=== PATIENT | female | born 2000 | race Caucasian/White ===

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

== ENCOUNTER 2021-07-16 18:56 | Emergency (ER) | payer MEDICAID, OTHER ==
--- NOTE | 2021-07-16 19:34 | EDM.PDOC ---
ED HPI GENERAL MEDICAL PROBLEM - General Chief Complaint: Fever Stated Complaint: fever Time Seen by Provider: 07/16/21 19:21 Source of Information: Reports: Patient - History of Present Illness INITIAL COMMENTS - FREE TEXT/NARRATIVE: 21-year-old lady came to the emergency department due to a 2-day history of fever, chills, cough, sore throat, arthralgias, myalgias, congestion. She states her symptoms started abruptly yesterday and got worse this morning. She is taken ibuprofen with only mild and temporary relief. The last time she took ibuprofen was 2:30 this afternoon. She does not know of any sick contacts. She has been vaccinated for Covid but does not have her influenza vaccine yet. - Related Data Allergies Allergy/AdvReac Type Severity Reaction Status Date / Time amoxicillin Allergy Rash Verified 07/16/21 19:15 Home Meds: Home Meds Sertraline [Zoloft] 100 mg PO BEDTIME 10/11/20 [History] QUEtiapine [SEROquel] 50 mg PO BEDTIME 07/16/21 [History] Sulfamethoxazole/Trimethoprim [Bactrim Ds Tablet] 1 each PO BID #6 tablet 07/16/21 [Rx] Venlafaxine HCl [Venlafaxine HCl ER] 150 mg PO DAILY 07/16/21 [History] Past Medical History Respiratory History: Reports: Asthma Psychiatric History: Reports: Anxiety, Depression - Past Surgical History HEENT Surgical History: Reports: Tonsillectomy Social & Family History - Caffeine Use Caffeine Use: Reports: Soda - Living Situation & Occupation Occupation: Employed (Works at [employer]) ED ROS ENT - Review of Systems Review Of Systems: See Below Constitutional: Reports: Fever, Chills, Fatigue HEENT: Reports: Rhinitis, Throat Pain, Other (Headache) Respiratory: Reports: Cough Cardiovascular: Reports: No Symptoms Endocrine: Reports: No Symptoms GI/Abdominal: Reports: Nausea : Reports: Flank Pain Musculoskeletal: Reports: Back Pain, Muscle Pain Skin: Reports: No Symptoms Neurological: Reports: No Symptoms Psychiatric: Reports: No Symptoms Hematologic/Lymphatic: Reports: No Symptoms Immunologic: Reports: No Symptoms ED EXAM, ENT - Physical Exam Exam: See Below Exam Limited By: No Limitations General Appearance: Alert, Anxious Eye Exam: Left Eye: EOMI Mouth/Throat: Throat Pain, Other (Erythema the posterior oropharynx). No: Dry Mucous Membrane Head: Atraumatic, Normocephalic Neck: Tender Lateral. No: Lymphadenopathy (R), Lymphadenopathy (L) Respiratory/Chest: No Respiratory Distress, Lungs Clear Cardiovascular: Normal Peripheral Pulses, Regular Rate, Rhythm GI/Abdominal: Normal Bowel Sounds, Soft, Non-Tender Back: CVA Tenderness (L) Extremities: Normal Inspection Neurological: Alert, Oriented, CN II-XII Intact, Normal Cognition Psychiatric: Anxious Skin: Warm, Dry Lymphatic: No Adenopathy Course - Vital Signs Text/Narrative:: Review of urinalysis shows likely urinary tract infection. Patient was given 1 double strength Bactrim. After approximately 30 minutes she has not had any adverse effects. Patient will be discharged to home. We will call her if her Covid test is positive. Her influenza test is negative. Last Recorded V/S: Last Vital Signs Temp 37.7 C 07/16/21 19:00 Pulse 106 H 07/16/21 19:00 Resp 18 07/16/21 19:00 BP 137/71 07/16/21 19:00 Pulse Ox 97 07/16/21 19:00 - Orders/Labs/Meds Orders: Active Orders 24 hr Category Date Time Status CORONAVIRUS COVID-19 CATHI [MOLEC] Urgent Lab 07/16/21 20:55 Ordered CULTURE URINE [RM] Stat Lab 07/16/21 20:06 Ordered Isolation [COMM] Routine Oth 07/16/21 19:28 Ordered Labs: Laboratory Tests 07/16/21 Range/Units 19:45 Urine Color Yellow (YELLOW) Urine Appearance Clear (CLEAR) Urine pH 8.0 H (5.0-6.5) Ur Specific [place] 1.005 L (1.010-1.025) Urine Protein Negative (NEGATIVE) mg/dL Urine Glucose (UA) Normal (NORMAL) mg/dL Urine Ketones Negative (NEGATIVE) mg/dL Urine Occult Blood Large H (NEGATIVE) Urine Nitrite Negative (NEGATIVE) Urine Bilirubin Negative (NEGATIVE) Urine Urobilinogen Normal (NEGATIVE) mg/dL Ur Leukocyte Esterase Moderate H (NEGATIVE) Urine RBC 5-10 H (0-5) Urine WBC 5-10 H (0-5) Ur Squamous Epith Cells Occasional (NS,R,O) Urine Bacteria Few H (NS) Meds: Medications Discontinued Medications Generic Name Dose Route Start Last Admin Trade Name Freq PRN Reason Stop Dose Admin Acetaminophen 650 mg 07/16/21 19:28 07/16/21 19:37 Acetaminophen 325 Mg Tab PO 07/16/21 19:29 650 mg NOW ONE Administration Trimethoprim/Sulfamethoxazole 1 tab 07/16/21 20:13 07/16/21 20:25 Sulfamethoxazole/Trimethoprim 800-160 Mg Tab PO 07/16/21 20:14 1 tab ONETIME ONE Administration Departure - Departure Time of Disposition: 20:59 Disposition: Home, Self-Care 01 Condition: Fair Clinical Impression: Urinary tract infection - Discharge Information *PRESCRIPTION DRUG MONITORING PROGRAM REVIEWED*: Not Applicable *COPY OF PRESCRIPTION DRUG MONITORING REPORT IN PATIENT AMAYA: Not Applicable Prescriptions: Sulfamethoxazole/Trimethoprim [Bactrim Ds Tablet] 1 each PO BID #6 tablet Instructions: Urinary Tract Infection, Adult Referrals: Nat Irvin MD [Primary Care Provider] - Forms: ED Department Discharge Additional Instructions: Patient instructed to drink plenty of fluids, take Bactrim double strength, twice daily, follow-up with primary care physician. Antibiotic treatment may n eed to be adjusted based on culture results. Sepsis Event Note (ED) - Evaluation Sepsis Screening Result: No Definite Risk - Focused Exam Vital Signs: Vital Signs Temp Pulse Resp BP Pulse Ox 07/16/21 19:00 37.7 C 106 H 18 137/71 97 - My Orders Last 24 Hours: My Active Orders 07/16/21 19:28 Isolation [COMM] Routine 07/16/21 20:06 CULTURE URINE [RM] Stat 07/16/21 20:55 CORONAVIRUS COVID-19 CATHI [MOLEC] Urgent - Assessment/Plan Last 24 Hours: My Active Orders 07/16/21 19:28 Isolation [COMM] Routine 07/16/21 20:06 CULTURE URINE [RM] Stat 07/16/21 20:55 CORONAVIRUS COVID-19 CATHI [MOLEC] Urgent
[2021-07-16] MEDS: Acetaminophen 325 MG Tab PO ONE (19:37)
[2021-07-16] MEDS: Sulfamethoxazole/Trimethoprim 800-160 MG Tab PO ONE (20:25)
== END 2021-07-16 21:05 | disposition home or self-care (01) ==
LOC: FB.ED 18:56
DX: N39.0 Urinary tract infection, site not specified (principal); Z88.0 Allergy status to penicillin; Z20.822 Contact with and (suspected) exposure to COVID-19
CPT/HCPCS: 81001; 87086; 87635; 87804; 99283; A9270; U0002

== ENCOUNTER 2021-08-15 00:18 | Emergency (ER) | payer MEDICAID, OTHER ==
--- NOTE | 2021-08-15 00:32 | EDM.PDOC ---
ED HPI GENERAL MEDICAL PROBLEM - General Stated Complaint: SPOTS ON BACK Time Seen by Provider: 08/15/21 00:28 Source of Information: Reports: Patient History Limitations: Reports: No Limitations - History of Present Illness INITIAL COMMENTS - FREE TEXT/NARRATIVE: 21-year-old female who presents to the emergency department via private vehicle from her home after she noted a rash on her right lower back. She has had some itching in that area but did not notice anything until tonight. This was noted by her at approximately 11:30 PM and she came directly to the emergency department for evaluation. She has had no fevers or chills. There has been no nausea or vomiting. No sore throat. No cough. No shortness of breath. She has been eating and drinking normally. She has had no new medications. No known new exposures. She has no pain. She would rate her pain as a 0/10. There are no other associated signs or symptoms. There are no other modifying factors. Onset: Today (11:30 p.m. tonight.) Duration: Constant Location: Reports: Back Quality: Reports: Other (No pain) Improves with: Reports: None Worsens with: Reports: None Context: Reports: Other (As above.) Associated Symptoms: Reports: No Other Symptoms (Except as above.) Treatments [employer]: Reports: Other (see below) (Nothing.) - Related Data Allergies Allergy/AdvReac Type Severity Reaction Status Date / Time amoxicillin Allergy Rash Verified 07/16/21 19:15 Home Meds: Home Meds QUEtiapine [SEROquel] 50 mg PO BEDTIME 07/16/21 [History] Venlafaxine HCl [Venlafaxine HCl ER] 150 mg PO DAILY 07/16/21 [History] Past Medical History Respiratory History: Reports: Asthma Psychiatric History: Reports: Anxiety, Depression - Past Surgical History HEENT Surgical History: Reports: Tonsillectomy Social & Family History - Tobacco Use Tobacco Use Status *Q: Never Tobacco User (Nonsmoker) - Caffeine Use Caffeine Use: Reports: Soda - Living Situation & Occupation Occupation: Employed (Works at [employer]) ED ROS GENERAL - Review of Systems Review Of Systems: See Below Constitutional: Denies: Fever, Chills HEENT: Denies: Throat Pain, Throat Swelling Respiratory: Denies: Shortness of Breath, Cough Cardiovascular: Denies: Chest Pain, Palpitations Endocrine: Denies: Fatigue GI/Abdominal: Denies: Nausea, Vomiting : Reports: Other (Denies any possibility of .) Skin: Reports: Pruritis, Rash. Denies: Diaphoresis Neurological: Denies: Dizziness, Headache Hematologic/Lymphatic: Denies: Easy Bleeding, Easy Bruising ED EXAM, SKIN/RASH Exam: See Below Exam Limited By: No Limitations General Appearance: Alert, WD/WN, No Apparent Distress Eye Exam: Bilateral Eye: Normal Inspection (Sclera are anicteric) Ears: Normal External Exam, Hearing Grossly Normal Nose: Normal Inspection, Normal Mucosa, No Blood Throat/Mouth: Normal Inspection, Normal Lips, Normal Teeth, Normal Gums, Normal Oropharynx, Normal Voice, No Airway Compromise Head: Atraumatic, Normocephalic Neck: Normal Inspection, Supple, Non-Tender, Full Range of Motion Respiratory/Chest: No Respiratory Distress, Lungs Clear, Normal Breath Sounds, No Accessory Muscle Use, Chest Non-Tender Cardiovascular: Normal Peripheral Pulses, Regular Rate, Rhythm, No Murmur Peripheral Pulses: 2+: Radial (L), Radial (R) GI/Abdominal: Normal Bowel Sounds, Soft, Non-Tender, No Mass Back Exam: No: Paraspinal Tenderness, Vertebral Tenderness Extremities: Normal Inspection, Normal Range of Motion, Non-Tender, No Pedal Edema, Normal Capillary Refill Neurological: Alert, Oriented, CN II-XII Intact, Normal Cognition, No Motor/Sensory Deficits Psychiatric: Normal Affect, Normal Mood Skin: Warm, Dry, Intact, Rash Location, Skin: Back (Right lower back) Characteristics: Maculopapular, Urticarial Lymphatic: No Adenopathy Course - Orders/Labs/Meds Meds: Medications Discontinued Medications Generic Name Dose Route Start Last Admin Trade Name Freq PRN Reason Stop Dose Admin Diphenhydramine HCl 50 mg 08/15/21 00:44 08/15/21 00:48 Diphenhydramine 50 Mg Cap PO 08/15/21 00:45 50 mg ONETIME ONE Administration - Re-Assessments/Exams Free Text/Narrative Re-Assessment/Exam: 08/15/21 00:35: There is a small area on her right lower back that does appear to have some hives. He has no areas anywhere else on her body that I can see. She is having no difficulty breathing and she is having only itching in the area. There is no sore throat or cause for this rash. No new medications and no new exposures that she is aware of. I will give the patient Benadryl 50 mg orally and she should take Benadryl 50 mg orally every 6 hours as needed for rash/itching. This does not appear to be anything of a serious nature. I discussed all this with the patient and tried to reassure her. Precautions and reasons to return to the emergency department were discussed with the patient will she was in the emergency department and were detailed in the patient's discharge instructions. Departure - Departure Time of Disposition: 00:43 Disposition: Home, Self-Care 01 Condition: Good (stable) Clinical Impression: Hives - Discharge Information Instructions: Hives, [id number], Rash, Adult, [id number] Referrals: Nat Irvin MD [Primary Care Provider] - Additional Instructions: The rash on your back does appear to be an allergic rash called hives. It could also be a rash related to a viral illness but you are really having no other symptoms that would suggest a viral illness. You can take Benadryl 50 mg by mouth every 6 hours as needed for itching. You can get this medication [id number] at any drugstore or at a local discount store. You were given a dose of Benadryl in the emergency department tonight. This does not appear to be anything of a serious nature at this point. Back to the emergency department for trouble breathing, high fever, severe weakness or any other concerning signs or symptoms.
[2021-08-15] MEDS ORDERED: diphenhydrAMINE 50 MG Cap PO ONE (00:44)
== END 2021-08-15 00:52 | disposition home or self-care (01) ==
LOC: FB.ED 00:18
DX: L50.9 Urticaria, unspecified (principal); Z88.0 Allergy status to penicillin
CPT/HCPCS: 99282; A9270

== ENCOUNTER 2021-09-24 13:18 | Emergency (ER) | payer MEDICAID ==
[2021-09-24 14:28] LABS: CORONAVIRUS COVID-19 NAA POSITIVE (NEGATIVE)
== END 2021-09-24 14:54 | disposition home or self-care (01) ==
LOC: FB.ED 13:18
DX: U07.1 COVID-19 (principal); J45.909 Unspecified asthma, uncomplicated; Z88.0 Allergy status to penicillin
CPT/HCPCS: 0241U; 99283

== ENCOUNTER 2023-01-01 11:11 | Emergency (ER) | payer MEDICAID ==
[2023-01-01] MEDS ORDERED: Acetaminophen/HYDROcodone 325-5 MG Tab PO ONE (11:12)
[2023-01-01] MEDS ORDERED: Distilled Water Ophth Irrig Soln 120 ML Bottle EYERT ONE (11:52)
[2023-01-01] MEDS ORDERED: Erythromycin Base 0.5% Ophth Oint 3.5 GM Tube EYEBOTH ONE ×2 (12:38→12:59)
[2023-01-01] MEDS ORDERED: Diphtheria,Pertussis(Acell),Tetanus Vaccine 0.5 ML Syringe IM ONE (12:38)
[2023-01-01] MEDS ORDERED: Erythromycin Base 0.5% Ophth Oint 1 GM Tube ONE (13:02)
== END 2023-01-01 13:15 | disposition home or self-care (01) ==
LOC: FB.ED 11:11
DX: S05.01XA Injury of conjunctiva and corneal abrasion without foreign body, right eye, initial encounter (principal); H10.33 Unspecified acute conjunctivitis, bilateral; J06.9 Acute upper respiratory infection, unspecified; J45.909 Unspecified asthma, uncomplicated; Z88.0 Allergy status to penicillin; Z88.8 Allergy status to other drugs, medicaments and biological substances; Z20.822 Contact with and (suspected) exposure to COVID-19; Z23 Encounter for immunization
CPT/HCPCS: 90471; 90715; 99283; A9270-GY; U0002

== ENCOUNTER 2023-01-19 21:20 | Emergency (ER) | payer MEDICAID ==
[2023-01-19] MEDS ORDERED: Lidocaine 2% Viscous Solution 15 ML UD TOP ONE ×2 (21:31→21:32)
[2023-01-19] MEDS ORDERED: Lidocaine 2% Viscous Solution 15 ML UD TOP STA (21:32)
[2023-01-19] MEDS ORDERED: Clindamycin HCl 150 MG Cap PO STA (22:20)
== END 2023-01-19 22:43 | disposition home or self-care (01) ==
LOC: FB.ED 21:20
DX: K05.6 Periodontal disease, unspecified (principal); J45.909 Unspecified asthma, uncomplicated; Z88.0 Allergy status to penicillin; Z88.8 Allergy status to other drugs, medicaments and biological substances
CPT/HCPCS: 99283; A9270

== ENCOUNTER 2024-02-23 20:03 | Emergency (ER) | payer MEDICAID ==
[2024-02-23 21:21] LABS: BASOPHILS ABSOLUTE AUTO 0.1 x10-3/uL (0.0-0.1); BASOPHILS PERCENT AUTO 0.5 % (0.2-1.5); EOSINOPHILS ABSOLUTE AUTO 0.3 x10-3/uL (0.0-0.8); EOSINOPHILS PERCENT AUTO 2.4 % (0.6-8.1); HEMATOCRIT 43.5 % (34.2-48.2); HEMOGLOBIN 14.4 g/dL (11.4-15.5); LYMPHOCYTES ABSOLUTE AUTO 1.7 x10-3/uL (1.0-4.4); LYMPHOCYTES PERCENT AUTO 15.8 % (18.4-52.1); MEAN CORPUSCULAR HEMOGLOBIN 28.1 pg (23.9-33.9); MEAN CORPUSCULAR HGB CONC 33.1 g/dL (31.9-34.8); MEAN PLATELET VOLUME 8.1 fL (7.1-12.4); MONOCYTES ABSOLUTE AUTO 0.6 x10-3/uL (0.3-1.0); MONOCYTES PERCENT AUTO 5.8 % (4.4-15.7); NEUTROPHILS ABSOLUTE AUTO 8.1 x10-3/uL (1.5-6.3); NEUTROPHILS PERCENT AUTO 75.5 % (30.8-76.2); PLATELET COUNT,PLT 370 x10(3)uL (151-488); RED BLOOD CELL COUNT 5.12 x10(6)uL (3.60-5.20); RED CELL DISTRIBUTION WIDTH 13.2 % (12.3-16.5); WHITE BLOOD CELL COUNT,WBC 10.8 x10-3/uL (3.0-10.3)
[2024-02-23 21:23] LABS: BLOOD UREA NITROGEN,BUN 12 mg/dL (7-18); BUN/CREATININE RATIO 10.9 (9-20); CALCIUM 9.1 mg/dL (8.6-10.2); CARBON DIOXIDE,CO2 29 mmol/L (21-32); CHLORIDE,CL 103 mmol/L (100-110); CREATININE 1.1 mg/dL (0.55-1.02); ESTIMATED GFR 73 mL/min (>60); GLUCOSE RANDOM 128 mg/dL (80-116); POTASSIUM,K 3.5 mmol/L (3.5-5.3); SODIUM,NA 141 mmol/L (135-145)
[2024-02-23] MEDS: Iopamidol 755 Mg/ML 100 ML Bottle IV SCH (21:24)
[2024-02-23 21:29] LABS: A/G RATIO 1.1; ALANINE AMINOTRANSFERASE,ALT 16 U/L (12-36); ALBUMIN 3.9 g/dL (3.5-5.2); ALKALINE PHOSPHATASE 70 IU/L (56-112); ASPARTATE AMNIOTRANSFERASE,AST 7 IU/L (5-25); BILIRUBIN TOTAL 0.3 mg/dL (0.1-1.3); PROTEIN TOTAL,TP 7.6 g/dL (6.0-8.0)
[2024-02-23] MEDS ORDERED: HYDROmorphone 2 MG/ML SDV IVPUSH ONE (23:07)
== END 2024-02-23 23:04 | disposition home or self-care (01) ==
LOC: FB.ED 20:03
DX: R10.84 Generalized abdominal pain (principal); Z88.0 Allergy status to penicillin; Z88.8 Allergy status to other drugs, medicaments and biological substances; Z79.899 Other long term (current) drug therapy; Y04.8XXA Assault by other bodily force, initial encounter
CPT/HCPCS: 36415; 74177; 80053; 83735; 85025; 99284; Q9967

== ENCOUNTER 2024-04-01 18:39 | Emergency (ER) | payer MEDICAID ==
[2024-04-01 20:56] LABS: BASOPHILS ABSOLUTE AUTO 0.1 x10-3/uL (0.0-0.1); BASOPHILS PERCENT AUTO 0.5 % (0.2-1.5); EOSINOPHILS ABSOLUTE AUTO 0.3 x10-3/uL (0.0-0.8); EOSINOPHILS PERCENT AUTO 2.6 % (0.6-8.1); HEMATOCRIT 41.6 % (34.2-48.2); LYMPHOCYTES ABSOLUTE AUTO 2.3 x10-3/uL (1.0-4.4); LYMPHOCYTES PERCENT AUTO 23.1 % (18.4-52.1); MEAN CORPUSCULAR HEMOGLOBIN 27.8 pg (23.9-33.9); MEAN CORPUSCULAR HGB CONC 33.7 g/dL (31.9-34.8); MEAN CORPUSCULAR VOLUME 82.5 fL (76.7-100.5); MEAN PLATELET VOLUME 7.8 fL (7.1-12.4); MONOCYTES ABSOLUTE AUTO 0.7 x10-3/uL (0.3-1.0); MONOCYTES PERCENT AUTO 6.9 % (4.4-15.7); NEUTROPHILS ABSOLUTE AUTO 6.8 x10-3/uL (1.5-6.3); NEUTROPHILS PERCENT AUTO 66.9 % (30.8-76.2); PLATELET COUNT,PLT 318 x10(3)uL (151-488); RED BLOOD CELL COUNT 5.04 x10(6)uL (3.60-5.20); RED CELL DISTRIBUTION WIDTH 13.7 % (12.3-16.5); WHITE BLOOD CELL COUNT,WBC 10.1 x10-3/uL (3.0-10.3)
[2024-04-01] MEDS: Ondansetron 4 MG/2 ML SDV IVPUSH ONE (20:57)
[2024-04-01 20:59] LABS: BLOOD UREA NITROGEN,BUN 7 mg/dL (7-18); CALCIUM 9.6 mg/dL (8.6-10.2); CARBON DIOXIDE,CO2 28 mmol/L (21-32); CHLORIDE,CL 104 mmol/L (100-110); EST CRCL DRUG DOSING (CG) 85.81 mL/min; ESTIMATED GFR 82 mL/min (>60); GLUCOSE RANDOM 119 mg/dL (80-116); POTASSIUM,K 3.4 mmol/L (3.5-5.3); SODIUM,NA 142 mmol/L (135-145)
[2024-04-01 21:05] LABS: ALANINE AMINOTRANSFERASE,ALT 16 U/L (12-36); ALBUMIN 3.9 g/dL (3.5-5.2); ALKALINE PHOSPHATASE 65 IU/L (56-112); ASPARTATE AMNIOTRANSFERASE,AST 7 IU/L (5-25); BILIRUBIN TOTAL 0.4 mg/dL (0.1-1.3); PROTEIN TOTAL,TP 7.7 g/dL (6.0-8.0)
[2024-04-01] MEDS: Sodium Chloride 0.9% 1,000 ML IV ONE (21:07)
[2024-04-01 22:02] LABS: AMORPHOUS SEDIMENT,URINE MANY; APPEARANCE,URINE CLOUDY (CLEAR); BACTERIA,URINE MODERATE (NS); BILIRUBIN,URINE NEGATIVE (NEGATIVE); COLOR,URINE YELLOW (YELLOW); GLUCOSE,URINE NORMAL (NORMAL); KETONES,URINE NEGATIVE (NEGATIVE); LEUKOCYTE ESTERASE,URINE NEGATIVE (NEGATIVE); NITRITE,URINE NEGATIVE (NEGATIVE); OCCULT BLOOD,URINE NEGATIVE (NEGATIVE); PROTEIN,URINE NEGATIVE (NEGATIVE); RBC,URINE 0-5 (0-5); SQUAMOUS EPITHELIAL CELLS,UR MANY (NS,R,O); UROBILINOGEN,URINE NORMAL (NEGATIVE); WBC,URINE 0-5 (0-5)
== END 2024-04-01 22:46 | disposition home or self-care (01) ==
LOC: FB.ED 18:39
DX: A08.4 Viral intestinal infection, unspecified (principal); Z79.899 Other long term (current) drug therapy; Z88.0 Allergy status to penicillin; Z88.8 Allergy status to other drugs, medicaments and biological substances; Z86.16 Personal history of COVID-19
CPT/HCPCS: 36415; 74176; 80053; 81001; 83605; 83690; 85025; 96361; 96374; 99284; J2405; J7030; 99283

== ENCOUNTER 2024-10-12 09:18 | Emergency (ER) | payer MEDICAID | END 2024-10-12 11:06 | disposition home or self-care (01) | LOC: FB.ED 09:18 | DX: M54.2 Cervicalgia (principal); R07.89 Other chest pain; Z86.16 Personal history of COVID-19; Z79.899 Other long term (current) drug therapy; Z79.2 Long term (current) use of antibiotics; Z88.0 Allergy status to penicillin; Z88.8 Allergy status to other drugs, medicaments and biological substances; W01.0XXA Fall on same level from slipping, tripping and stumbling without subsequent striking against object, initial encounter | CPT/HCPCS: 70450; 71045; 72125; 99285 ==